=== PATIENT | male | born 1975 | race Native Hawaiian/Other Pacific Islander ===

== ENCOUNTER 2016-10-21 06:24 | Day surgery (SDC) | payer OTHER ==
--- NOTE | 2016-10-21 07:28 | ED PDOC ---
Upper Extremity Pain/Injury Time Seen by Provider: 10/21/16 07:09 Chief Complaint (Nursing): Upper Extremity Problem/Injury Chief Complaint (Provider): Left Distal Forearm Fx History Per: Patient History/Exam Limitations: no limitations Onset/Duration Of Symptoms: Days (x3 weeks) Current Symptoms Are (Timing): Still Present Severity: Moderate Pain Scale Rating Of: 2 Exacerbating Factor(s): Strenuous Use Of Affected Area, Movement Additional Complaint(s): Patient is a 40 year old male presenting to the ED complaining of distal left forearm Fx x3 weeks ago. Patient presents today for re-evaluation from Dr. Gomez and being seen by him last week. Denies medical complains. PMD: none Past Medical History Reviewed: Historical Data, Nursing Documentation, Vital Signs Vital Signs: Last Vital Signs Temp 98.8 F 10/21/16 06:40 Pulse 77 10/21/16 06:40 Resp 17 10/21/16 06:40 BP 131/85 10/21/16 06:40 Pulse Ox 98 10/21/16 06:40 - Medical History PMH: No Chronic Diseases Denies: Chronic Kidney Disease - Surgical History Other surgeries: Ruptured Ulcer Surgery - Family History Family History: States: No Known Family Hx - Immunization History Hx Tetanus Toxoid Vaccination: No Hx Influenza Vaccination: No Hx Pneumococcal Vaccination: No - Home Medications Home Medications: Ambulatory Orders Medication Instructions Recorded Docusate [Colace] 100 mg PO TID 10/21/16 oxyCODONE/Acetaminophen [Percocet 5 - 325 mg PO Q6 PRN 10/21/16 5/325 mg Tab] - Allergies Allergies/Adverse Reactions: Allergies Allergy/AdvReac Type Severity Reaction Status Date / Time No Known Allergies Allergy Verified 09/30/16 01:59 Review of Systems ROS Statement: Except As Marked, All Systems Reviewed And Found Negative Constitutional: Negative for: Fever Musculoskeletal: Positive for: Other (left arm fx). Negative for: Arm Pain, Hand Pain Physical Exam - Reviewed Nursing Documentation Reviewed: Yes Vital Signs Reviewed: Yes - Physical Exam Appears: Positive for: Well, Non-toxic, No Acute Distress Head Exam: Positive for: ATRAUMATIC, NORMAL INSPECTION, NORMOCEPHALIC Skin: Positive for: Normal Color, Warm, DRY Eye Exam: Positive for: Normal appearance, EOMI Neck: Positive for: Normal, Painless ROM Extremity: Positive for: Normal ROM (full rom to left fingers), Capillary Refill (less than 2 seconds), Other (splint intact and clean). Negative for: Deformity Neurologic/Psych: Positive for: Alert, Oriented - Laboratory Results Result Diagrams: 10/21/16 07:41 10/21/16 07:41 - ECG O2 Sat by Pulse Oximetry: 98 (RA) Pulse Ox Interpretation: Normal Medical Decision Making Medical Decision Making: Time: 7:10 Impression: Left Distal Arm Fx Plan: BMP CBC PTT/PT Scribe Attestation: Documented by Katie Driscoll acting as a scribe for Jody Crockett MD. Scribe Attestation: All medical record entries made by the Scribe were at my direction and personally dictated by me. I have reviewed the chart and agree that the record accurately reflects my personal performance of the history, physical exam, medical decision making, and the department course for this patient. I have also personally directed, reviewed, and agree with the discharge instructions and disposition. Disposition - Clinical Impression Clinical Impression: Wrist fracture, left, Distal radius fracture, left - Patient ED Disposition Is Patient to be Admitted: Yes Discussed With : Roshan Gomez Doctor Will See Patient In The: Hospital Counseled Patient/Family Regarding: Studies Performed, Diagnosis - Disposition Disposition Time: 07:30 Condition: GOOD - Pt Status Changed To: Hospital Disposition Of: Observation - POA Present On Arrival: Falls Or Trauma
[2016-10-21] MEDS ORDERED: Propofol 10 mg/ml Inj (20 ML) ONE ×2 (07:49→10:04)
[2016-10-21] MEDS ORDERED: ePHEDrine 50 mg/ml Inj ONE (07:50)
[2016-10-21] MEDS ORDERED: Midazolam 2 MG/2 ML VIAL ONE (07:51)
[2016-10-21] MEDS ORDERED: Succinylcholine 200 mg/10 ml Inj IV ONE (07:51)
[2016-10-21 07:58] LABS: BASO # 0.1 K/uL (0.0-0.2); BASO % 0.8 % (0.0-2.0); EOS # 0.5 K/uL (0.0-0.7); EOS % 7.6 % (0.0-4.0); HEMATOCRIT 46.5 % (35.0-51.0); LYMPH # 2.5 K/uL (1.0-4.3); LYMPH % 35.4 % (20.0-40.0); MEAN CELL VOLUME 90.8 fl (80.0-94.0); MEAN CORPUSCULAR HEMOGLOBIN 31.1 pg (27.0-31.0); MEAN CORPUSCULAR HGB CONC 34.3 g/dL (33.0-37.0); MEAN PLATELET VOLUME 8.2 fl (7.2-11.7); MONO # 0.5 K/uL (0.0-0.8); MONO % 7.7 % (0.0-10.0); NEUT # 3.4 K/uL (1.8-7.0); NEUT % 48.5 % (50.0-75.0); NRBC % 0.1 % (0.0-0.0); RED CELL DISTRIBUTION WIDTH 12.8 % (11.5-14.5); WHITE BLOOD COUNT 7.1 K/uL (4.8-10.8)
[2016-10-21 08:02] LABS: BLOOD UREA NITROGEN 11 mg/dl (9-20); CALCIUM 9.5 mg/dL (8.4-10.2); CARBON DIOXIDE 29 mmol/L (22-30); CHLORIDE 101 mmol/L (98-107); GFR AFRICAN-AMERICAN > 60; GLUCOSE,RANDOM 102 mg/dL (75-110); POTASSIUM 4.9 MMOL/L (3.6-5.0); SODIUM 142 mmol/l (132-148)
[2016-10-21 08:13] LABS: PARTIAL THROMBOPLASTIN TIME 26.1 SECONDS (23.3-32.5)
[2016-10-21] MEDS ORDERED: Lactated Ringer's 1,000 ML IV ONE (09:00)
[2016-10-21] MEDS ORDERED: Rocuronium 10 mg/ml (5 ml) ONE (09:42)
[2016-10-21] MEDS ORDERED: Dexamethasone 4 mg/1 ml ONE (10:02)
[2016-10-21] MEDS ORDERED: Desflurane Inhalation Anesthetic Liq (240 ml) ONE (11:03)
[2016-10-21] MEDS ORDERED: Lactated Ringer's 1,000 ML IV SCH (11:38)
[2016-10-21] MEDS: HYDROmorphone 0.5 mg/0.5 ml ISec IVP PRN ×4 (11:40→12:25)
--- NOTE | 2016-10-21 11:47 | PCM.SURG1 ---
Surgeon's Initial Post Op Note - Surgeon's Notes Surgeon: Roshan Gomez MD Freight Service Inspector: Marciano Covarrubias MD; Alley Villa PA-C Type of Anesthesia: General Endo Pre-Operative Diagnosis: Left Distal Radial Shaft Fx Operative Findings: See op report Post-Operative Diagnosis: Same as pre-op dx Operation Performed: Left ORIF Distal Radial Shaft Fx Specimen/Specimens Removed: None Estimated Blood Loss: EBL {In ML}: 25 Date of Surgery/Procedure: 10/21/16 Time of Surgery/Procedure: 10:30
[2016-10-21] MEDS ORDERED: Acetaminophen 325 MG/10.15 ML PO PRN (11:49)
[2016-10-21] MEDS ORDERED: Oxycodone/Acetaminophen 5/325 mg Tab PO PRN (11:50)
[2016-10-21 13:13] VITALS: RESP 18
[2016-10-21 16:54] VITALS: BP 126/77; PULSE 95; TEMP 98.1
--- NOTE | 2016-10-22 07:59 | OP ---
PROCEDURE DATE: 10/21/2016 ATTENDING PHYSICIAN: Roshan Gomez MD PREOPERATIVE DIAGNOSIS: Left wrist, left distal radius shaft fracture. POSTOPERATIVE DIAGNOSIS: Left wrist, left distal radius shaft fracture. PROCEDURE: Left forearm open reduction internal fixation of distal radial shaft fracture. ANESTHESIA TYPE: General. ESTIMATED BLOOD LOSS: 10 mL. COMPLICATIONS: None. HISTORY OF PRESENT ILLNESS: The patient is a 40-year-old male, right hand dominant, who had a mechan ical fall landing onto his left wrist over 2 weeks ago. The patient was seen in the Emergency Room a nd placed in a splint. He was seen by me in the office when I explained to the patient the displaced nature of the fracture and recommended patient with operative and nonoperative management. Due to d isplaced nature, I had recommended open reduction internal fixation of the fracture. I reviewed the risks and benefits of the surgery with the patient in detail. The risks included, but not limited to, bleeding, infection, nerve vessel damage, malunion, nonunion, symptomatic hardware, stiffness, need for further surgery among others. The patient fully understood the risks and the benefits and opted to proceed with the surgery. On the day of the surgery, the patient presented himself to the ER. He was brought to the OR holding area. A laterality sheet was completed, confirming patient's left forearm to be the correct operati ve site. Informed consent was signed from the patient and left forearm was marked. Afterwards, sandy ent was brought into the operating room table. He underwent general anesthesia. A padded tourniquet was applied to patient's left forearm. The left forearm was draped and prepped and standard sterile manner. First, a timeout was completed confirming patient's left wrist to be the correct operative site. We inflated the tourniquet to 250 mmHg. We utilized the standard distal Chao approach. Skin was incised. A 10 cm incision was made over the Chao interval using a 15 blade. Dissection was ta edu down. Interval between the radial artery and the FCR was identified and quadratus pronator was s harply dissected off the bone. The fracture was identified. The callus and the debris were removed. The radius was brought out to length and confirmed on AP and lateral radiography. A 9-hole, a 90 m m Synthes plate was placed into proper positioning and was confirmed with both AP and lateral radiogr aphs. First, we proceeded with a proximal cortical screw and 2 distal locking screws and we compress ed the fracture using the plate with the plate technique providing dynamic compression against the fr acture site. Two additional locking screws were placed in the most distal holes and 2 additional cor tical screws were placed proximal to the fracture. Final radiographs were taken, confirming the adeq uate fracture reduction and proper placement of the plate. The wound was copiously irrigated. The p ronator quadratus was closed using 3-0 Vicryl sutures. Skin incision was closed using 3-0 Vicryl and running Monocryl sutures. A sterile dressing was applied. The tourniquet was deflated. The patien t was placed in a sugar-tong splint. There were no complications of surgery. Roshan Gomez MD cc: [id number] TT: 10/21/2016 12:46:00 en
[2016-10-22 13:06] VITALS: O2SAT 98
--- NOTE | 2016-10-22 14:41 | RAD ---
PROCEDURE: Left forearm Two views of the left forearm performed through a fiberglass ze splint which partially obscures fine soft tissue and bone detail. HISTORY: s/p ORIF left distal radial shaft fx COMPARISON: None available. TECHNIQUE: Frontal and lateral views obtained. FINDINGS: BONES: Current study reveals the presence of a long segment fixation plate which is attached to the volar aspect of the distal 1/3 of the left radius reducing a transverse fracture of the distal diaphysis. Hardware appears intact without evidence of loosening or infection. . Fracture line is still visible. . JOINT SPACES: . Joint spaces are preserved. OTHER FINDINGS: None. IMPRESSION: ORIF transverse fracture distal 1/3 of the left radius. The hardware appears intact without evidence of failure. . Fracture line is still visible.
== END 2016-10-21 17:10 | disposition home or self-care (01) ==
LOC: H.ER 06:24 → H.SDS 07:31 → H.ERHOLD 07:31 → H.SDS 17:10
PROVIDERS: ATTEND Orthopaedic Surgery
DX: S52.92XA Unspecified fracture of left forearm, initial encounter for closed fracture (principal); W19.XXXA Unspecified fall, initial encounter; K21.9 Gastro-esophageal reflux disease without esophagitis; Z87.891 Personal history of nicotine dependence

== ENCOUNTER 2017-06-10 17:09 | Emergency (ER) | payer OTHER ==
[2017-06-10 17:24] VITALS: BP 133/87; PULSE 85; RESP 16; TEMP 98; O2SAT 100
--- NOTE | 2017-06-10 18:12 | ED PDOC ---
Lower Extremity Pain/Injury Time Seen by Provider: 06/10/17 18:03 Chief Complaint (Nursing): Lower Extremity Problem/Injury Chief Complaint (Provider): left foot pain History Per: Patient Current Symptoms Are (Timing): Still Present Additional Complaint(s): 41 year old male presents to the emergency department with a complaint of a left heel pain since yesterday. The pain started while he was at work. He denies any injury but states he is on his feet all day at work daily. He did not take any meds for pain relief. Patient states pain is better with rest, worse when walking. Past Medical History Reviewed: Historical Data, Nursing Documentation, Vital Signs Vital Signs: Last Vital Signs Temp 98.0 F 06/10/17 17:21 Pulse 85 06/10/17 17:21 Resp 16 06/10/17 17:21 BP 133/87 06/10/17 17:21 Pulse Ox 100 06/10/17 17:21 - Medical History PMH: No Chronic Diseases - Surgical History Other surgeries: surgical repair of perforated gastric ulcer, left wrist fracture repair - Family History Family History: States: No Known Family Hx - Living Arrangements Living Arrangements: With Family - Social History Current smoker - smoking cessation education provided: No Alcohol: None Drugs: Denies - Home Medications Home Medications: Ambulatory Orders Medication Instructions Recorded Docusate [Colace] 100 mg PO TID 10/21/16 oxyCODONE/Acetaminophen [Percocet 5 - 325 mg PO Q6 PRN 10/21/16 5/325 mg Tab] Ibuprofen [Motrin Tab] 800 mg PO Q8 PRN #20 tab 06/10/17 - Allergies Allergies/Adverse Reactions: Allergies Allergy/AdvReac Type Severity Reaction Status Date / Time No Known Allergies Allergy Verified 06/10/17 17:21 Wells Criteria for PE - Wells Criteria for Pulmonary Embolism Clinical Signs and Symptoms of DVT: No P.E is #1 Diagnosis, or Equally Likely: No Heart Rate >100: No Immobilization at least 3 days;Surgery previous 4 weeks: No Previous, objectively diagnosed PE or DVT: No Hemoptysis: No Malignancy w/treatment within 6 months, or palliative: No Total Score: 0 Review of Systems ROS Statement: Except As Marked, All Systems Reviewed And Found Negative (As per HPI, otherwise negative) Musculoskeletal: Positive for: Other (left heel pain, denies injury) Physical Exam - Reviewed Nursing Documentation Reviewed: Yes Vital Signs Reviewed: Yes - Physical Exam Appears: Positive for: Non-toxic, No Acute Distress Skin: Positive for: Normal Color. Negative for: Rash Extremity: Positive for: Normal ROM (Full range of motion of the left foot), Other (Point tenderness and mild swelling to posterior heel of the left foot) Neurologic/Psych: Positive for: Alert, Oriented (x3) - ECG O2 Sat by Pulse Oximetry: 100 (RA) Pulse Ox Interpretation: Normal - Other Rad Left foot x-ray X-Ray: Interpreted by Me, Viewed By Me X-Ray Interpretation: calcification to posterior calcaneous, no fracture, no dislocation Medical Decision Making Medical Decision Making: Time: 1811 Initial impression: 41 y/o male with left heel pain Initial plan: --Tylenol 975 mg PO --Left foot x-ray --Reevaluation Time: 1924 --Podiatry resident, Dr. Rodriguez reviewed x-rays and states to have patient obtain [id number] ankle sleeve and have him follow-up with podiatry. Prescription provided for ibuprofen. Dx - achilles tendinitis. Crutches given. Scribe Attestation: Documented by Sherlyn Varghese, acting as a scribe for Tamela Chappell PA-C Provider Scribe Attestation: All medical record entries made by the Scribe were at my direction and personally dictated by me. I have reviewed the chart and agree that the record accurately reflects my personal performance of the history, physical exam, medical decision making, and the department course for this patient. I have also personally directed, reviewed, and agree with the discharge instructions and disposition. Disposition - Clinical Impression Clinical Impression: Achilles tendinitis, left leg - Patient ED Disposition Is Patient to be Admitted: No Counseled Patient/Family Regarding: Studies Performed, Diagnosis, Need For Followup, Rx Given - Disposition Referrals: Maulik Figueroa DPM [Staff Provider] - Disposition: Routine/Home Disposition Time: 20:21 Condition: STABLE Additional Instructions: Ice, rest and elevate affected area. Take rx meds as directed as needed for pain. Follow up with inventory checker in 2-3 days. Prescriptions: Ibuprofen [Motrin Tab] 800 mg PO Q8 PRN #20 tab PRN Reason: Pain, Moderate (4-7) Instructions: Achilles Tendinitis (ED) Forms: [facility] ([place]), [facility] ED School/Work Excuse
--- NOTE | 2017-06-11 08:34 | RAD ---
PROCEDURE: Left Foot Radiographs. HISTORY: heel pain COMPARISON: None. FINDINGS: BONES: No acute fracture or destructive bony lesion identified. JOINTS: Normal. SOFT TISSUES: Minimal ossification of the insertion of the Achilles tendon at the posterior calcaneus is identified. OTHER FINDINGS: None. IMPRESSION: No acute fracture or dislocation. No destructive bony lesion identified.
== END 2017-06-10 21:07 | disposition home or self-care (01) ==
LOC: H.ER 17:09
DX: M76.62 Achilles tendinitis, left leg (principal)